=== PATIENT | female | born 1950 | race Caucasian/White ===

== ENCOUNTER 2017-02-24 20:58 | Inpatient (IN) | payer OTHER ==
[~2017-02-24] VITALS: Ht 162.6 cm; Wt 60.0 kg
[~2017-02-24 20:58] MED LIST: SIMV40TA2 PO; SYN125 PO
[2017-02-24] MEDS ORDERED: SODIUM CHLORIDE 0.9% 1000ML 1,000 ML IV STA (21:20)
[2017-02-24] MEDS ORDERED: ONDANSETRON INJ 2 MG/ML 2 ML VIAL IV STA (21:20)
[2017-02-24] MEDS ORDERED: MoRPHine SULFATE 10 MG/ML CARP/VIAL IV STA (21:20)
[2017-02-24 21:39] LABS: BASO % 0.3 %; BASO ABS # 0.03 K/uL (0-0.2); COMPLETE YES; EOS % 0.6 %; HEMATOCRIT 36.8 % (37-47); IG% 0.3 %; LYMPH % 34.6 %; LYMPH ABS # 4.03 K/uL (1.2-3.4); MEAN CORPUSCULAR HEMOGLOBIN 30.6 pg (25-34); MEAN CORPUSCULAR HGB CONC 34.8 g/dl (32-36); MEAN PLATELET VOLUME 10.9 fL (7.4-10.4); MONO % 5.8 %; NEUT % 58.4 %; PLATELET COUNT 211 K/uL (130-400); RED BLOOD COUNT 4.18 M/uL (4.2-5.4); WHITE BLOOD COUNT 11.65 K/uL (4.8-10.8)
[2017-02-24 21:42] LABS: MANUAL MICROSCOPIC REQUIRED? YES; URINE APPEARANCE SL CLOUDY (CLEAR); URINE BILIRUBIN NEG (NEG); URINE COLOR YELLOW; URINE NITRITE NEG (NEG); URINE PH 7.5 (4.5-7.5); URINE SPECIFIC GRAVITY <= 1.005 (1.000-1.030); UROBILINOGEN NEG (NEG)
--- NOTE | 2017-02-24 21:43 | EMERGENCY ROOM VISIT NOTE ---
History First contact with patient: 21:11 Chief Complaint: ABDOMINAL PAIN Stated Complaint: ABDOMINAL PAIN Nursing Triage Summary: c/o lower abd pain for 2 hrs with n/v/d pt presents to the room screaming and yelling calming techniques given. History of Present Illness The patient is a 66 year old female who presents to the Emergency Room with complaints of lower abdominal pain which began suddenly 2 hours ago. The patient states that she has a pressure and pain in her lower abdomen which started suddenly 2 hours ago. She has been vomiting and has had a few episodes of diarrhea. She denies any history of similar symptoms. She rates her discomfort a 10/10. She has had a previous cholecystectomy but denies any other abdominal surgeries. She takes medication for thyroid but denies other medical problems. She denies urinary symptoms or fevers/chills. Review of Systems A complete 10 point review of systems was reviewed with the patient with pertinent positives and negatives as per history of present illness. All else were negative. Social History Smoking Status: Never Smoker Current/Historical Medications Scheduled Levothyroxine Sodium (Synthroid), 125 MCG PO QAM Simvastatin (Zocor), 40 MG PO QPM Allergies Coded Allergies: No Known Allergies (Unverified , 02/24/17) Physical Exam Vital Signs Date Time Temp Pulse Resp B/P (MAP) Pulse Ox O2 Delivery O2 Flow Rate FiO2 02/24/17 22:37 67 16 159/74 94 Room Air 02/24/17 22:12 63 18 151/70 100 Room Air 02/24/17 21:19 36.8 02/24/17 21:04 36.9 111 18 161/76 100 Room Air Physical Exam VITALS: Vitals are noted on the nurse's note and reviewed by myself. Vital signs stable. GENERAL: This is a 66-year-old female, screaming, appears to be in pain, well- developed well-nourished. HEART: Regular rate and rhythm without murmurs gallops or rubs. LUNGS: Clear to auscultation bilaterally without wheezes, rales or rhonchi. ABDOMEN: Positive bowel sounds x 4. Soft, nondistended. There is moderate tenderness to palpation of the suprapubic region. There is no guarding or rebound tenderness. No rigidity. NEURO: Patient was alert and oriented to person place and time. Medical Decision & Procedures ER Provider Diagnostic Interpretation: CT OF THE ABDOMEN AND PELVIS WITHOUT CONTRAST CLINICAL HISTORY: Sudden onset left flank pain. COMPARISON STUDY: No previous studies for comparison. TECHNIQUE: Axial images of the abdomen and pelvis were obtained without IV contrast. Images were reviewed in the axial, sagittal, and coronal planes. FINDINGS: Unenhanced images of the liver, spleen, adrenal glands and pancreas are normal. There is no biliary ductal dilatation status post cholecystectomy. There is mild left hydroureteronephrosis due to a 5 mm x 3 mm distal left ureteral calculus which is located just proximal to the ureterovesical junction. There is mild to moderate left perinephric and periureteral infiltration. There is no evidence for a bowel obstruction. The appendix is normal. Note is made of an 8.6 x 8.3 x 7.4 cm mixed attenuation fat and calcium containing mass within the pelvis which is located along the right posterior aspect of the uterus. This mass likely arises from the right ovary and displaces the uterus. A normal-appearing left ovary is identified on this examination. No normal-appearing right ovary is identified on this exam. Mild compression deformity of the superior endplate of L4 is likely old. There is a small hiatal hernia. IMPRESSION: 1. 5 mm x 3 mm distal left ureteral calculus which results in mild left hydroureteronephrosis with perinephric infiltration. 2. 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 Nonemergent gynecologic consultation is recommended. Laboratory Results 02/24/17 21:20 Red Blood Count 4.18, Mean Corpuscular Volume 88.0, Mean Corpuscular Hemoglobin 30.6, Mean Corpuscular Hemoglobin Concent 34.8, Mean Platelet Volume 10.9, Neutrophils (%) (Auto) 58.4, Lymphocytes (%) (Auto) 34.6, Monocytes (%) (Auto) 5.8, Eosinophils (%) (Auto) 0.6, Basophils (%) (Auto) 0.3, Neutrophils # (Auto) 6.81, Lymphocytes # (Auto) 4.03, Monocytes # (Auto) 0.67, Eosinophils # (Auto) 0.07, Basophils # (Auto) 0.03 02/24/17 21:20 Test 02/24/17 21:10 02/24/17 21:20 02/24/17 21:40 Urine Color YELLOW Urine Appearance SL CLOUDY (CLEAR) Urine pH 7.5 (4.5-7.5) Urine Specific [place] <= 1.005 (1.000-1.030) Urine Protein NEG (NEG) Urine Glucose (UA) NEG (NEG) Urine Ketones NEG (NEG) Urine Occult Blood TRACE (NEG) Urine Nitrite NEG (NEG) Urine Bilirubin NEG (NEG) Urine Urobilinogen NEG (NEG) Urine Leukocyte Esterase TRACE (NEG) Urine RBC 0-4 /hpf (0-4) Urine WBC 5-10 /hpf (0-5) Urine Epithelial Cells >30 /lpf (0-5) Urine Bacteria 1+ (NEG) Urine Granular Casts 0-3 /lpf (0) White Blood Count 11.65 K/uL (4.8-10.8) Red Blood Count 4.18 M/uL (4.2-5.4) Hemoglobin 12.8 g/dL (12.0-16.0) Hematocrit 36.8 % (37-47) Mean Corpuscular Volume 88.0 fL (80-100) Mean Corpuscular Hemoglobin 30.6 pg (25-34) Mean Corpuscular Hemoglobin Concent 34.8 g/dl (32-36) Platelet Count 211 K/uL (130-400) Mean Platelet Volume 10.9 fL (7.4-10.4) Neutrophils (%) (Auto) 58.4 % Lymphocytes (%) (Auto) 34.6 % Monocytes (%) (Auto) 5.8 % Eosinophils (%) (Auto) 0.6 % Basophils (%) (Auto) 0.3 % Neutrophils # (Auto) 6.81 K/uL (1.4-6.5) Lymphocytes # (Auto) 4.03 K/uL (1.2-3.4) Monocytes # (Auto) 0.67 K/uL (0.11-0.59) Eosinophils # (Auto) 0.07 K/uL (0-0.5) Basophils # (Auto) 0.03 K/uL (0-0.2) RDW Standard Deviation 40.2 fL (36.4-46.3) RDW Coefficient of Variation 12.6 % (11.5-14.5) Immature Granulocyte % (Auto) 0.3 % Immature Granulocyte # (Auto) 0.04 K/uL (0.00-0.02) Anion Gap 14.0 mmol/L (3-11) Est Creatinine Clear Calc Drug Dose 44.1 ml/min Estimated GFR () 61.0 Estimated GFR (Non- 52.6 BUN/Creatinine Ratio 22.0 (10-20) Calcium Level 9.0 mg/dl (8.5-10.1) Total Bilirubin 0.6 mg/dl (0.2-1) Direct Bilirubin < 0.1 mg/dl (0-0.2) Aspartate Amino Transf (AST/SGOT) 37 U/L (15-37) Alanine Aminotransferase (ALT/SGPT) 39 U/L (12-78) Alkaline Phosphatase 70 U/L (45-117) Total Protein 7.4 gm/dl (6.4-8.2) Albumin 4.1 gm/dl (3.4-5.0) Lipase 172 U/L (73-393) Lactic Acid Level 2.1 mmol/L (0.4-2.0) Medications Administered Medications (Trade) Dose Ordered Sig/Sascha Route Start Time Stop Time Status Last Admin Dose Admin Sodium Chloride 1,000 ml @ 999 mls/hr Q1H1M STAT IV 02/24/17 21:20 02/24/17 22:20 DC 02/24/17 21:27 999 MLS/HR Morphine Sulfate (MoRPHine SULFATE INJ) 6 mg NOW STAT IV 02/24/17 21:20 02/24/17 21:22 DC 02/24/17 21:28 6 MG Ondansetron HCl (Zofran Inj) 4 mg NOW STAT IV 02/24/17 21:20 02/24/17 21:22 DC 02/24/17 21:28 4 MG Promethazine HCl 12.5 mg/Sodium Chloride 50.5 ml @ 204 mls/hr NOW STAT IV 02/24/17 21:54 02/24/17 22:08 DC 02/24/17 22:11 204 MLS/HR Hydromorphone HCl (Dilaudid Inj) 0.5 mg NOW STAT IV 02/24/17 22:30 02/24/17 22:32 DC 02/24/17 22:35 0.5 MG ED Course The patient was evaluated as above. Labs were drawn and IV access was obtained. Patient was medicated with 6 mg morphine IV, 1 L normal saline solution and 4 mg Zofran IV. The patient was reevaluated and felt slightly better, but has continued nausea and vomiting. She was given 12.5 mg Phenergan IV. Patient was reevaluated and had continued pain. She was given 0.[address] of the abdomen and pelvis was performed and read by radiology as above. Patient was reevaluated and findings were discussed. She will be admitted for further evaluation and treatment. Case was discussed with the [facility] hospitalist, Dr. Austin. They agreed to evaluate the patient for admission. Medical Decision Differential diagnosis includes kidney stone, diverticulitis, urinary tract infection, ischemic colitis, appendicitis, gastroenteritis, ovarian cyst, ovarian torsion, among others. The patient is a 66-year-old female who presents today complaining of an acute onset of abdominal pain and vomiting. Labs revealed mild leukocytosis consistent with infection or vomiting. Urinalysis was suggestive of contamination vs infection and will be sent for culture. CT showed a 5x3mm stone in the left distal ureter. Patient had continued pain and nausea and will be admitted for further evaluation. She did have an incidental finding of an ovarian mass, likely a teratoma. Of note, after discussion with Dr. Austin for admission, the patient's lactic acid did return and was slightly elevated at 2.1. This was initially ordered to rule out ischemic colitis. I am unsure of the cause of the patient's lactic acidosis. She will be admitted to the [facility] service for further evaluation. The patient was independently evaluated by Dr. Higuera, ED attending physician, who agreed with my assessment and treatment plan. Medication reconciliation: I attest that I have personally reviewed the patient 's current medication list. Blood pressure screening: Patient was found to have an elevated blood pressure and was referred to their primary care provider for recheck and further treatment. Impression Primary Impression: Left ureteral calculus Departure Information Referrals Sergio Dillon III, M.D. (PCP) Patient Instructions My [facility]
[2017-02-24 21:45] LABS: REVIEW REQ? NO
[2017-02-24 21:47] LABS: SULFASALICYLIC ACID NEG (NEG)
[2017-02-24 21:49] LABS: URINE BACTERIA 1+ (NEG); URINE RBC 0-4 /hpf (0-4)
[2017-02-24 21:50] LABS: URINE GRANULAR CAST 0-3 /lpf (0); ZZUR CULT IF INDIC CLEAN CATCH YES
[2017-02-24] MEDS ORDERED: PROMETHAZINE HCL INJ 12.5 MG in SODIUM CHLORIDE 0.9% 50ML 50 ML IV STA (21:54)
[2017-02-24 21:59] LABS: ALT/SGPT 39 U/L (12-78); BLOOD UREA NITROGEN 24 mg/dl (7-18); CARBON DIOXIDE 24 mmol/L (21-32); CHLORIDE 107 mmol/L (98-107); GLUCOSE 120 mg/dl (70-99); POTASSIUM 3.1 mmol/L (3.5-5.1); SODIUM 145 mmol/L (136-145)
[2017-02-24 22:02] LABS: ALKALINE PHOSPHATASE 70 U/L (45-117); AST/SGOT 37 U/L (15-37)
[2017-02-24] MEDS ORDERED: SYN125 PO (22:13)
[2017-02-24] MEDS ORDERED: HYDROmorphone INJ 0.5 MG/0.5 ML SYR IV STA (22:30)
--- NOTE | 2017-02-24 22:47 | DIAGNOSTIC IMAGING REPORT ---
CT OF THE ABDOMEN AND PELVIS WITHOUT CONTRAST CLINICAL HISTORY: Sudden onset left flank pain. COMPARISON STUDY: No previous studies for comparison. TECHNIQUE: Axial images of the abdomen and pelvis were obtained without IV contrast. Images were reviewed in the axial, sagittal, and coronal planes. FINDINGS: Unenhanced images of the liver, spleen, adrenal glands and pancreas are normal. There is no biliary ductal dilatation status post cholecystectomy. There is mild left hydroureteronephrosis due to a 5 mm x 3 mm distal left ureteral calculus which is located just proximal to the ureterovesical junction. There is mild to moderate left perinephric and periureteral infiltration. There is no evidence for a bowel obstruction. The appendix is normal. Note is made of an 8.6 x 8.3 x 7.4 cm mixed attenuation fat and calcium containing mass within the pelvis which is located along the right posterior aspect of the uterus. This mass likely arises from the right ovary and displaces the uterus. A normal-appearing left ovary is identified on this examination. No normal-appearing right ovary is identified on this exam. Mild compression deformity of the superior endplate of L4 is likely old. There is a small hiatal hernia. IMPRESSION: 1. 5 mm x 3 mm distal left ureteral calculus which results in mild left hydroureteronephrosis with perinephric infiltration. 2. 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 Nonemergent gynecologic consultation is recommended. Electronically signed by: Nathan Hawkins M.D. 02/24/2017 10:46 PM Dictated Date/Time: 02/24/2017 10:34 PM
--- NOTE | 2017-02-24 22:56 | EMERGENCY ROOM VISIT NOTE ---
ED Visit Note First contact with patient: 21:11 Staff note: I have reviewed the Patients chart and have discussed this case with my PA. I generally agree with the ED note and findings.
[2017-02-24] MEDS ORDERED: POLYETHYLENE (MIRALAX) 17 GM PACK PO PRN (23:45)
[2017-02-24] MEDS ORDERED: MAGNESIUM HYDROXIDE SUSP 30 ML UDC PO PRN (23:45)
[2017-02-24] MEDS ORDERED: ACETAMINOPHEN 325 MG TAB PO PRN (23:45)
[2017-02-24] MEDS ORDERED: ONDANSETRON INJ 2 MG/ML 2 ML VIAL IV PRN (23:45)
[2017-02-24] MEDS ORDERED: ALUMINUM/MAGNESIUM/SIMETH (MAALOX MAX) 30 ML UDC PO PRN (23:45)
[2017-02-24] MEDS ORDERED: KETOROLAC TROMETHAMINE 30 MG/ML VIAL IV PRN (23:45)
[2017-02-25] VITALS (9 sets, daily range): BP systolic 104–167; BP diastolic 58–93; PULSE 68–80; TEMP 36.5–36.9; O2SAT 97–100; Ht 162.6 cm; Wt 60.0 kg
[2017-02-25] MEDS: MoRPHine SULFATE 2 MG/ML CARP IV PRN ×3 (00:44→23:59)
[2017-02-25] MEDS: SODIUM CHLORIDE 0.9% 1000ML 1,000 ML IV SCH ×4 (01:28→23:59)
[2017-02-25] MEDS: CEFTRIAXONE SOD INJ 1 GM in DEXTROSE 5% ADD-VANTAGE 50ML 50 ML IV SCH (02:52)
--- NOTE | 2017-02-25 02:55 | History and Physical ---
History & Physical Date & Time of Service: Feb 25, 2017 at 02:40 Chief Complaint: Left Ureteral Calculus Primary Care Physician: Sergio Dillon III, M.D. History of Present Illness Source: patient, family, clinic records, hospital records This is a 66 year old female with a PMH of hypothyroidism, HLD presents with worsening suprapubic tenderness, nausea/vomiting, symptomatic fevers/chills. Symptoms began acutely and pain was severe so she presented to the ER. Upon presentation, imagining revealed a left sided kidney stone. She received pain medications and antiemetics and she felt somewhat better. During my exam, she was tired, but pain subsided and she was feeling more comfortable. Has not had a kidney stone in the past. Denies dysuria, urinary frequency, or hematuria. Social History Smoking Status: Never Smoker Multi-Drug Resistant Organisms History of MDRO: No Allergies Coded Allergies: No Known Allergies (Unverified , 02/24/17) Home Medications Scheduled Levothyroxine Sodium (Synthroid), 125 MCG PO QAM Simvastatin (Zocor), 40 MG PO QPM Review of Systems Constitutional: + fever, + chills, + sweats, + weakness, No weight loss, No fatigue Respiratory: No cough, No sputum, No wheezing, No shortness of breath, No dyspnea on exertion, No dyspnea at rest, No hemoptysis Cardiovascular: No chest pain, No edema, No palpitations Abdomen: + pain, + nausea, + vomiting, + diarrhea, No constipation, No GI bleeding Musculoskeletal: No joint pain, No muscle pain Genitourinary - Female: No dysuria, No urinary frequency, No urinary urgency, No hematuria Neurologic: + weakness, No numbness/tingling, No vertigo, No balance problems Psychiatric: No depression symptoms, No anxiety, No insomnia Endocrine: No fatigue Hematologic / Lymphatic: No abnormal bleeding/bruising Integumentary: No rash Allergic / Immunologic: No environmental allergies, No seasonal allergies Physical Exam Vital Signs Date Time Temp Pulse Resp B/P (MAP) Pulse Ox O2 Delivery O2 Flow Rate FiO2 02/25/17 01:09 36.7 71 14 167/93 100 Room Air 02/25/17 00:20 36.7 71 14 167/93 (117) 100 Room Air 02/24/17 23:46 64 18 156/65 100 Room Air 02/24/17 22:37 67 16 159/74 94 Room Air 02/24/17 22:12 63 18 151/70 100 Room Air 02/24/17 21:19 36.8 02/24/17 21:04 36.9 111 18 161/76 100 Room Air General Appearance: no apparent distress, + pertinent finding (+tired/weak) Head: normocephalic, atraumatic Eyes: normal inspection ENT: hearing grossly normal Respiratory/Chest: lungs clear, normal breath sounds, no respiratory distress, no accessory muscle use Cardiovascular: regular rate, rhythm, no edema, no murmur Abdomen/GI: normal bowel sounds, soft, + tenderness (diffusely, worse suprapubicly) Back: + left CVA tenderness Extremities/Musculoskelatal: no calf tenderness, normal capillary refill, no pedal edema Neurologic/Psych: no motor/sensory deficits, alert, normal mood/affect Skin: normal color Lymphatic: no adenopathy Diagnostics Laboratory Results Results Past 24 Hours Test 02/24/17 21:10 02/24/17 21:20 02/24/17 21:40 Range/Units Urine Color YELLOW Urine Appearance SL CLOUDY CLEAR Urine pH 7.5 4.5-7.5 Urine Specific [place] <= 1.005 1.000-1.030 Urine Protein NEG NEG Urine Glucose (UA) NEG NEG Urine Ketones NEG NEG Urine Occult Blood TRACE NEG Urine Nitrite NEG NEG Urine Bilirubin NEG NEG Urine Urobilinogen NEG NEG Urine Leukocyte Esterase TRACE NEG Urine RBC 0-4 0-4 /hpf Urine WBC 5-10 0-5 /hpf Urine Epithelial Cells >30 0-5 /lpf Urine Bacteria 1+ NEG Urine Granular Casts 0-3 0 /lpf White Blood Count 11.65 4.8-10.8 K/uL Red Blood Count 4.18 4.2-5.4 M/uL Hemoglobin 12.8 12.0-16.0 g/dL Hematocrit 36.8 37-47 % Mean Corpuscular Volume 88.0 80-100 fL Mean Corpuscular Hemoglobin 30.6 25-34 pg Mean Corpuscular Hemoglobin Concent 34.8 32-36 g/dl Platelet Count 211 130-400 K/uL Mean Platelet Volume 10.9 7.4-10.4 fL Neutrophils (%) (Auto) 58.4 % Lymphocytes (%) (Auto) 34.6 % Monocytes (%) (Auto) 5.8 % Eosinophils (%) (Auto) 0.6 % Basophils (%) (Auto) 0.3 % Neutrophils # (Auto) 6.81 1.4-6.5 K/uL Lymphocytes # (Auto) 4.03 1.2-3.4 K/uL Monocytes # (Auto) 0.67 0.11-0.59 K/uL Eosinophils # (Auto) 0.07 0-0.5 K/uL Basophils # (Auto) 0.03 0-0.2 K/uL RDW Standard Deviation 40.2 36.4-46.3 fL RDW Coefficient of Variation 12.6 11.5-14.5 % Immature Granulocyte % (Auto) 0.3 % Immature Granulocyte # (Auto) 0.04 0.00-0.02 K/uL Sodium Level 145 136-145 mmol/L Potassium Level 3.1 3.5-5.1 mmol/L Chloride Level 107 98-107 mmol/L Carbon Dioxide Level 24 21-32 mmol/L Anion Gap 14.0 3-11 mmol/L Blood Urea Nitrogen 24 7-18 mg/dl Creatinine 1.10 0.60-1.20 mg/dl Est Creatinine Clear Calc Drug Dose 44.1 ml/min Estimated GFR () 61.0 Estimated GFR (Non- 52.6 BUN/Creatinine Ratio 22.0 10-20 Random Glucose 120 70-99 mg/dl Calcium Level 9.0 8.5-10.1 mg/dl Total Bilirubin 0.6 0.2-1 mg/dl Direct Bilirubin < 0.1 0-0.2 mg/dl Aspartate Amino Transf (AST/SGOT) 37 15-37 U/L Alanine Aminotransferase (ALT/SGPT) 39 12-78 U/L Alkaline Phosphatase 70 45-117 U/L Total Protein 7.4 6.4-8.2 gm/dl Albumin 4.1 3.4-5.0 gm/dl Lipase 172 73-393 U/L Lactic Acid Level 2.1 0.4-2.0 mmol/L Microbiology Results 02/24/17 Urine Culture, Received Pending Diagnostic Radiology CT OF THE ABDOMEN AND PELVIS WITHOUT CONTRAST CLINICAL HISTORY: Sudden onset left flank pain. COMPARISON STUDY: No previous studies for comparison. TECHNIQUE: Axial images of the abdomen and pelvis were obtained without IV contrast. Images were reviewed in the axial, sagittal, and coronal planes. FINDINGS: Unenhanced images of the liver, spleen, adrenal glands and pancreas are normal. There is no biliary ductal dilatation status post cholecystectomy. There is mild left hydroureteronephrosis due to a 5 mm x 3 mm distal left ureteral calculus which is located just proximal to the ureterovesical junction. There is mild to moderate left perinephric and periureteral infiltration. There is no evidence for a bowel obstruction. The appendix is normal. Note is made of an 8.6 x 8.3 x 7.4 cm mixed attenuation fat and calcium containing mass within the pelvis which is located along the right posterior aspect of the uterus. This mass likely arises from the right ovary and displaces the uterus. A normal-appearing left ovary is identified on this examination. No normal-appearing right ovary is identified on this exam. Mild compression deformity of the superior endplate of L4 is likely old. There is a small hiatal hernia. IMPRESSION: 1. 5 mm x 3 mm distal left ureteral calculus which results in mild left hydroureteronephrosis with perinephric infiltration. 2. 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 Nonemergent gynecologic consultation is recommended. Impression Assessment and Plan This is a 66 year old female with a PMH of hypothyroidism, HLD presents with worsening suprapubic tenderness, nausea/vomiting, symptomatic fevers/chills. Left Ureteral Calculus Abdominal CT performed and shows a 5mm x 3mm stone there is some hydroureteronephrosis continue analgesics, antiemetics IVFs strain urine WBC slightly elevated, symptomatic fevers, lactic acidosis UA seems slightly infected, started on Rocephin for now, culture pending recheck CBC and lactic acid in AM urology consultation placed for further input Right Ovarian Mature Teratoma suprapubic tenderness Pelvic CT suggests a mature dermoid cyst on R ovary Rehabilitation Program Coordinator consultation placed Hypothyroid continue Synthroid HLD continue statin DVT ppx SCDs FULL CODE Advanced Directives Existing Living Will: No Existing Power of Commercial [place]: No VTE Prophylaxis VTE Risk Assessment Done? Y/N: Yes Risk Level: Low
[2017-02-25] MEDS: LEVOTHYROXINE 125 MCG TAB PO SCH (05:34)
[2017-02-25 06:49] LABS: HEMATOCRIT 34.1 % (37-47); MEAN CELL VOLUME 87.2 fL (80-100); MEAN CORPUSCULAR HEMOGLOBIN 29.4 pg (25-34); MEAN CORPUSCULAR HGB CONC 33.7 g/dl (32-36); MEAN PLATELET VOLUME 10.2 fL (7.4-10.4); PLATELET COUNT 183 K/uL (130-400); RED BLOOD COUNT 3.91 M/uL (4.2-5.4)
[2017-02-25 07:26] LABS: CALCIUM 7.9 mg/dl (8.5-10.1); CREATININE 1.2 mg/dl (0.60-1.20); MAGNESIUM 2.4 mg/dl (1.8-2.4); POTASSIUM 4.1 mmol/L (3.5-5.1)
[2017-02-25] MEDS ORDERED: TAMSULOSIN HCL 0.4 MG CAP PO ONE (10:00)
--- NOTE | 2017-02-25 10:24 | Progress Note ---
Medicine Progress Note Date & Time of Visit: Feb 25, 2017 at 10:24 . Subjective Admitted last night with left ureteral colic. No fever, but has some chills last night. Lower abdominal pain improved. No dysuria or gross hematuria. Severe nausea last night, improved. No chest pain. No cough or shortness of breath. . Objective Last 8 Hrs Date Time Temp Pulse Resp B/P (MAP) Pulse Ox O2 Delivery O2 Flow Rate FiO2 02/25/17 07:59 Room Air 02/25/17 07:55 99 Room Air 02/25/17 07:45 36.5 80 16 108/68 (81) 99 Room Air 02/25/17 02:30 116/72 (87) Physical Exam: General- no distress Lungs- clear to auscultation Heart- regular Abdomen- normal bowel sounds, soft, nontender Back- no CVA tenderness Extremities- no pretibial edema or calf tenderness Neuro- alert, oriented . Laboratory Results: Last 24 Hours Test 02/24/17 21:10 02/24/17 21:20 02/24/17 21:40 02/25/17 06:28 Urine Color YELLOW Urine Appearance SL CLOUDY Urine pH 7.5 Urine Specific Parker <= 1.005 Urine Protein NEG Urine Glucose (UA) NEG Urine Ketones NEG Urine Occult Blood TRACE Urine Nitrite NEG Urine Bilirubin NEG Urine Urobilinogen NEG Urine Leukocyte Esterase TRACE Urine RBC 0-4 /hpf Urine WBC 5-10 /hpf Urine Epithelial Cells >30 /lpf Urine Bacteria 1+ Urine Granular Casts 0-3 /lpf White Blood Count 11.65 K/uL Red Blood Count 4.18 M/uL Hemoglobin 12.8 g/dL Hematocrit 36.8 % Mean Corpuscular Volume 88.0 fL Mean Corpuscular Hemoglobin 30.6 pg Mean Corpuscular Hemoglobin Concent 34.8 g/dl Platelet Count 211 K/uL Mean Platelet Volume 10.9 fL Neutrophils (%) (Auto) 58.4 % Lymphocytes (%) (Auto) 34.6 % Monocytes (%) (Auto) 5.8 % Eosinophils (%) (Auto) 0.6 % Basophils (%) (Auto) 0.3 % Neutrophils # (Auto) 6.81 K/uL Lymphocytes # (Auto) 4.03 K/uL Monocytes # (Auto) 0.67 K/uL Eosinophils # (Auto) 0.07 K/uL Basophils # (Auto) 0.03 K/uL RDW Standard Deviation 40.2 fL RDW Coefficient of Variation 12.6 % Immature Granulocyte % (Auto) 0.3 % Immature Granulocyte # (Auto) 0.04 K/uL Sodium Level 145 mmol/L Potassium Level 3.1 mmol/L Chloride Level 107 mmol/L Carbon Dioxide Level 24 mmol/L Anion Gap 14.0 mmol/L Blood Urea Nitrogen 24 mg/dl Creatinine 1.10 mg/dl Est Creatinine Clear Calc Drug Dose 44.1 ml/min Estimated GFR () 61.0 Estimated GFR (Non- 52.6 BUN/Creatinine Ratio 22.0 Random Glucose 120 mg/dl Calcium Level 9.0 mg/dl Total Bilirubin 0.6 mg/dl Direct Bilirubin < 0.1 mg/dl Aspartate Amino Transf (AST/SGOT) 37 U/L Alanine Aminotransferase (ALT/SGPT) 39 U/L Alkaline Phosphatase 70 U/L Total Protein 7.4 gm/dl Albumin 4.1 gm/dl Lipase 172 U/L Hepatitis C Antibody Screen NEG Lactic Acid Level 2.1 mmol/L 0.7 mmol/L Test 02/25/17 06:38 White Blood Count 8.60 K/uL Red Blood Count 3.91 M/uL Hemoglobin 11.5 g/dL Hematocrit 34.1 % Mean Corpuscular Volume 87.2 fL Mean Corpuscular Hemoglobin 29.4 pg Mean Corpuscular Hemoglobin Concent 33.7 g/dl RDW Standard Deviation 40.7 fL RDW Coefficient of Variation 12.6 % Platelet Count 183 K/uL Mean Platelet Volume 10.2 fL Sodium Level 143 mmol/L Potassium Level 4.1 mmol/L Chloride Level 111 mmol/L Carbon Dioxide Level 23 mmol/L Anion Gap 9.0 mmol/L Blood Urea Nitrogen 22 mg/dl Creatinine 1.20 mg/dl Est Creatinine Clear Calc Drug Dose 40.4 ml/min Estimated GFR () 54.9 Estimated GFR (Non- 47.4 BUN/Creatinine Ratio 18.0 Random Glucose 118 mg/dl Calcium Level 7.9 mg/dl Magnesium Level 2.4 mg/dl Date/Time Source Procedure Growth Status 02/24/17 21:10 Urine , Clean Catch Urine Culture Pending Received Assessment & Plan URETERAL COLIC CT demonstrated left distal ureteral calculus measuring 3 x 5 mm. Receiving IV fluids and ceftriaxone. Afebrile. WBC slightly elevated on admission, improved. Urology consulted. Tamsulosin ordered. Further management per Urology. OVARIAN MASS CT demonstrated right ovarian mass measuring 8.6 cm in greatest diameter. 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 FIELD SALES EXECUTIVE consulted. VTE PROPHYLAXIS SCD's. Ambulate. DISPOSITION Expected discharge to home. Family Medicine follow-up with Christina Garcia PA-C and Dr. Dillon. . Current Inpatient Medications: Current Inpatient Medications Medications (Trade) Dose Ordered Sig/Sascha Route Start Time Stop Time Status Last Admin Dose Admin Acetaminophen (Tylenol Tab) 650 mg Q4H PRN PO 02/24/17 23:45 03/26/17 23:44 Al Hydrox/Mg Hydrox/Simethicone (Maalox Max Susp) 15 ml Q4H PRN PO 02/24/17 23:45 03/26/17 23:44 Magnesium Hydroxide (Milk Of Magnesia Susp) 30 ml Q6H PRN PO 02/24/17 23:45 03/26/17 23:44 Polyethylene (Miralax Powder Packet) 17 gm DAILY PRN PO 02/24/17 23:45 03/26/17 23:44 Ondansetron HCl (Zofran Inj) 4 mg Q6H PRN IV 02/24/17 23:45 03/26/17 23:44 Sodium Chloride 1,000 ml @ 125 mls/hr Q8H IV 02/25/17 01:30 03/27/17 01:29 02/25/17 08:57 125 MLS/HR Morphine Sulfate (MoRPHine SULFATE INJ) 2 mg Q4 PRN IV 02/24/17 23:45 03/10/17 23:44 02/25/17 00:44 2 MG Ketorolac Tromethamine (Toradol Inj) 30 mg Q6H PRN IV 02/24/17 23:45 03/01/17 23:44 Levothyroxine Sodium (Synthroid Tab) 125 mcg DAILYBB PO 02/25/17 06:00 03/27/17 06:59 02/25/17 05:34 125 MCG Simvastatin (Zocor Tab) 40 mg QPM PO 02/25/17 21:00 03/27/17 20:59 Ceftriaxone Sodium 1 gm/ Dextrose 50 ml @ 100 mls/hr Q24H IV 6/13/17 03:00 03/07/17 02:59 02/25/17 02:52 100 MLS/HR
--- NOTE | 2017-02-25 17:24 | Urology Consultation ---
History General Date of Service: Feb 25, 2017. Chief Complaint: left ureteral stone Primary Care Physician: Sergio Dillon III, M.D. Pt seen a urologist before?: No History of Present Illness I am asked by Dr Austin to evaluate and treat patient for left ureteral stone. She has had pain for 2 days. She had nausea and emesis and a lot of bladder pressure. She had a pain free episode for most of today but is not at 5pm getting bladder pressure and chills and nausea again, I had the nurse recheck her temp and it is 36C she has never had stone before. Laboratory Labs were reviewed and are within normal limits unless listed below. Labs are available in the chart and at [facility] Problem List Medical Problems: (1) Left ureteral calculus Status: Acute Past History high cholesterol, hypothyroidism Past Surgical History: cholecystectomy (age 26 ) Family History no stones sibs and parents healthy mom age 85 Social History Hx Tobacco Use In Past Year?: No Smoking: non-smoker Alcohol: never Drug use: none Marital status: Housing status: lives with family Occupation status: employed History of MDRO No Allergies Coded Allergies: No Known Allergies (Unverified , 02/24/17) Medications Home Medications: Home Meds and Scripts Medications Dose Route/Sig Max Daily Dose Days Date Category Synthroid (Levothyroxine Sodium) 125 Mcg Tab 125 Mcg PO QAM 02/24/17 Reported Zocor (Simvastatin) 40 Mg Tab 40 Mg PO QPM 02/27/11 Reported Inpatient Medications: Current Inpatient Medications Medications (Trade) Dose Ordered Sig/Sascha Route Start Time Stop Time Status Last Admin Dose Admin Acetaminophen (Tylenol Tab) 650 mg Q4H PRN PO 02/24/17 23:45 03/26/17 23:44 Al Hydrox/Mg Hydrox/Simethicone (Maalox Max Susp) 15 ml Q4H PRN PO 02/24/17 23:45 03/26/17 23:44 Magnesium Hydroxide (Milk Of Magnesia Susp) 30 ml Q6H PRN PO 02/24/17 23:45 03/26/17 23:44 Polyethylene (Miralax Powder Packet) 17 gm DAILY PRN PO 02/24/17 23:45 03/26/17 23:44 Ondansetron HCl (Zofran Inj) 4 mg Q6H PRN IV 02/24/17 23:45 03/26/17 23:44 Sodium Chloride 1,000 ml @ 125 mls/hr Q8H IV 02/25/17 01:30 03/27/17 01:29 02/25/17 16:38 125 MLS/HR Morphine Sulfate (MoRPHine SULFATE INJ) 2 mg Q4 PRN IV 02/24/17 23:45 03/10/17 23:44 02/25/17 00:44 2 MG Ketorolac Tromethamine (Toradol Inj) 30 mg Q6H PRN IV 02/24/17 23:45 03/01/17 23:44 Levothyroxine Sodium (Synthroid Tab) 125 mcg DAILYBB PO 02/25/17 06:00 03/27/17 06:59 02/25/17 05:34 125 MCG Simvastatin (Zocor Tab) 40 mg QPM PO 02/25/17 21:00 03/27/17 20:59 Ceftriaxone Sodium 1 gm/ Dextrose 50 ml @ 100 mls/hr Q24H IV 02/25/17 03:00 03/07/17 02:59 02/25/17 02:52 100 MLS/HR Review of Systems Review of Systems Constitutional: + chills, No fever Endocrine: + excessive thirst, + too hot, + too cold, + tired/sluggish Gastrointestinal: + abdominal pain, + nausea, + vomiting, + diarrhea, No constipation Cardiovascular: No chest pain, No irregular heartbeat, No palpitations, No swelling ankles/feet Respiratory: No shortness of breath, No chronic cough Female : + frequent urination, + painful urination, + infections, + kidney stones Physical Exam Vital Signs: Vital Signs Past 12 Hours Date Time Temp Pulse Resp B/P (MAP) Pulse Ox O2 Delivery O2 Flow Rate FiO2 02/25/17 14:50 36.7 74 16 104/58 (73) 97 Room Air 02/25/17 11:49 36.6 68 15 108/62 (77) 99 Room Air 02/25/17 07:59 Room Air 02/25/17 07:55 99 Room Air 02/25/17 07:45 36.5 80 16 108/68 (81) 99 Room Air Physical Exam: General Appearance: WD/WN, no apparent distress, + thin Eyes: bilateral eyes normal inspection ENT: hearing grossly normal Neck: supple, no adenopathy, trachea midline Respiratory/Chest: normal breath sounds, no respiratory distress, no accessory muscle use Cardiovascular: regular rate, rhythm Gastrointestinal: Abdomen: normal abdomen Bladder: normal bladder Renal: pertinent finding (left cva tenderness) Hernia: absent hernia Liver: normal liver Extremities: non-tender, normal inspection, no pedal edema Neurologic/Psychiatric: alert, normal mood/affect, oriented x 3 Skin: normal color, warm/dry, no rash Lymphatic: no adenopathy Assessment & Plan Assessment & Plan Imaging: CT left uvj stone with hydro I think it is likely to pass no fever no white count u.a does not look bad if she fevers we will have to stent otherwise try to pass change to clear liquid diet again due to nausea
[2017-02-25] MEDS: SIMVASTATIN 40 MG TAB PO SCH (21:08)
[2017-02-26] VITALS (8 sets, daily range): BP systolic 108–139; BP diastolic 62–69; PULSE 62–78; TEMP 36.4–36.9; O2SAT 98–99
[2017-02-26] MEDS: CEFTRIAXONE SOD INJ 1 GM in DEXTROSE 5% ADD-VANTAGE 50ML 50 ML IV SCH (02:28)
[2017-02-26] MEDS: MoRPHine SULFATE 2 MG/ML CARP IV PRN ×2 (04:10→08:24)
[2017-02-26] MEDS: LEVOTHYROXINE 125 MCG TAB PO SCH (05:34)
[2017-02-26 06:29] LABS: HEMATOCRIT 31.9 % (37-47); MEAN CELL VOLUME 89.1 fL (80-100); MEAN CORPUSCULAR HEMOGLOBIN 28.2 pg (25-34); MEAN CORPUSCULAR HGB CONC 31.7 g/dl (32-36); PLATELET COUNT 138 K/uL (130-400); RED BLOOD COUNT 3.58 M/uL (4.2-5.4); WHITE BLOOD COUNT 8.73 K/uL (4.8-10.8)
[2017-02-26 07:07] LABS: BUN/CREATININE RATIO 10.9 (10-20); CREATININE 1.5 mg/dl (0.60-1.20); POTASSIUM 3.8 mmol/L (3.5-5.1)
[2017-02-26] MEDS ORDERED: OXYCODONE/ACETAMINOPHEN 5-325 TAB PO PRN ×2 (07:30)
[2017-02-26] MEDS: SODIUM CHLORIDE 0.9% 1000ML 1,000 ML IV SCH ×2 (08:23→16:43)
[2017-02-26] MEDS ORDERED: MoRPHine SULFATE 2 MG/ML CARP IV PRN (12:00)
[2017-02-26] MEDS ORDERED: TAMSULOSIN HCL 0.4 MG CAP PO ONE (14:30)
[2017-02-26] MEDS ORDERED: ONDANSETRON INJ 2 MG/ML 2 ML VIAL IV PRN (16:45)
[2017-02-26] MEDS ORDERED: HYDROmorphone INJ 1 MG/ML SYR IV PRN (16:45)
[2017-02-26] MEDS ORDERED: ATROPINE SULFATE 0.1 MG/ML 5ML SYR IV PRN (16:45)
[2017-02-26] MEDS ORDERED: EpHEDrine SULFATE INJ 50 MG/ML AMP IV PRN (16:45)
[2017-02-26] MEDS ORDERED: FENTANYL CITRATE INJ 50 MCG/1 ML 2 ML VIAL IV PRN (16:45)
[2017-02-26] MEDS ORDERED: MIDAZOLAM HCL 1 MG/ML 2ML VIAL ONE (16:49)
[2017-02-26] MEDS ORDERED: FENTANYL CITRATE INJ 50 MCG/1 ML 2 ML VIAL ONE (16:49)
--- NOTE | 2017-02-26 16:59 | History & Physical Bridge Note ---
H&P Re-Evaluation Bridge Note: I have examined the patient, reviewed the History & Physical and in the interval since the performance of the History & Physical I have noted the following changes of clinical significance: No changes noted still hasnt passed stone still having pain needing narcotics creatinine has risen plan left ureteroscopy laser litho basket stone extraction stent
[2017-02-26] MEDS ORDERED: LIDOCAINE HCL 2% 2 ML VIAL (20MG/ML) ONE (17:15)
[2017-02-26] MEDS ORDERED: DEXAMETHASONE SOD INJ 4 MG/ML VIAL ONE (17:15)
[2017-02-26] MEDS ORDERED: SUCCINYLCHOLINE CHLORIDE 20 MG/ML 10 ML VIAL IV ONE (17:15)
[2017-02-26] MEDS ORDERED: ONDANSETRON INJ 2 MG/ML 2 ML VIAL ONE (17:15)
[2017-02-26] MEDS ORDERED: BELLADONNA/OPIUM SUPP 60 MG SUPP PR ONE ×2 (17:28)
--- NOTE | 2017-02-26 17:39 | [facility] Operative Report ---
Operative Report Operative Date Feb 26, 2017. Pre-Operative Diagnosis left distal ureteral stone Post-Operative Diagnosis same Procedure(s) Performed left ureteroscopy laser lithotripsy basket stone extraction Surgeon Dr Dye Supervisor Pairing And Inspecting Surgeon(s) none Estimated Blood Loss 0ml Findings radio-lucent distal ureteral stone Fluids 400mL Specimens a. Left ureteral stone - stone analysis Drains none Anesthesia GET Complication(s) None Disposition Recovery Room / PACU Indications obstructing left distal ureteral stone has not progressed in 3 days and she is getting mild renal insufficiency. Description of Procedure Patient was given general GET anesthesia and placed in lithotomy position. Her genitals were prepped and draped in sterile fashion. Time out held with team. I placed a 21 fr rigid cystoscope to bladder. The urethra is unremarkable. She has moderate pelvic prolapse and the trigone is located at the inferior edge of pubic symphysis. The left uo is bulged up from stone the right Uo is normal. I placed a road runner wire up left ureter with moderate resistance at stone at uvj. A stiff wire was tried first and would not pass. I passed a 5 fr open ended cath over the road runner and switched back to a stiff wire. I placed a short semirigid scope along side the wire into the distal ureter. her stone is there pale castro and crystalline. I used a 200 micron holmium laser fiber to fragment the stone into tiny pieces. All but 1 irrigated out the UO into bladder. I used a 2.4 fr zero tip basket to grasp remaining stone and extracted it and sent it for specimen. The remainder of ureter is free of stone. Case was short and atraumatic all in the distal ureter so I did not leave a stent. I left bladder empty and concluded case. I placed a belladonna and opium suppository for post-op pain. She transferred to recovery under my escort, in stable condition. Plan: Home today or tomorrow Pyridium for dysuria x 3 days flomax daily oral pain meds as needed ASA 2 clean contaminated case 2 seconds fluoro ceftriaxone antibiotic this morning I attest to the content of the Intraoperative Record and any orders documented therein. Any exceptions are noted below.
--- NOTE | 2017-02-26 17:41 | DIAGNOSTIC IMAGING REPORT ---
KUB CLINICAL HISTORY: LEFT URETRA STONE, LASER lithotripsy TECHNIQUE: Lithotripsy COMPARISON STUDY: None FINDINGS: Single image is submitted demonstrating a left ureteral guidewire IMPRESSION: image intensifier usage of for laser lithotripsy. Electronically signed by: Ramin Saini M.D. 02/26/2017 5:40 PM Dictated Date/Time: 02/26/2017 5:39 PM
[2017-02-26] MEDS ORDERED: PHENAZOPYRIDINE HCL 200 MG TAB PO PRN (17:45)
--- NOTE | 2017-02-26 18:20 | Anesthesiology Progress Note ---
Anesthesia Post Op Note Date & Time Feb 26, 2017 at 18:20 Vital Signs Pain Intensity: 0 Vital Signs Past 12 Hours Date Time Temp Pulse Resp B/P (MAP) Pulse Ox O2 Delivery O2 Flow Rate FiO2 02/26/17 18:12 74 21 02/26/17 18:12 74 21 99 02/26/17 18:11 126/60 02/26/17 18:10 36.4 76 19 126/60 (75) 98 Nasal Cannula 2 02/26/17 18:07 79 16 02/26/17 18:07 79 16 99 02/26/17 18:06 76 16 120/70 100 02/26/17 18:06 77 16 02/26/17 18:01 82 21 118/76 99 02/26/17 18:01 84 21 02/26/17 17:56 83 20 128/63 100 02/26/17 17:56 83 20 02/26/17 17:51 83 22 109/88 100 02/26/17 17:51 83 22 02/26/17 17:49 119/66 02/26/17 17:46 36.7 85 18 119/66 97 Mask 10 02/26/17 17:00 36.7 68 16 140/69 (92) 100 Room Air 02/26/17 15:30 Room Air 02/26/17 15:29 36.9 62 16 132/69 (90) 98 Room Air 02/26/17 07:37 98 Room Air 02/26/17 07:36 36.9 78 16 108/68 (81) 98 Room Air 02/26/17 07:15 98 Room Air Notes Mental Status: alert / awake / arousable, participated in evaluation Pt Amnestic to Procedure: Yes Nausea / Vomiting: adequately controlled Pain: adequately controlled Airway Patency, RR, SpO2: stable & adequate BP & HR: stable & adequate Hydration State: stable & adequate Anesthetic Complications: no major complications apparent
[2017-02-26] MEDS ORDERED: PHEN-1043 PO (20:28)
[2017-02-26] MEDS ORDERED: PHENAZOPYRIDINE HCL 200 MG TAB PO ONE (20:30)
[2017-02-26] MEDS ORDERED: FLM4 PO (20:37)
--- NOTE | 2017-02-26 20:37 | Discharge Instructions ---
Discharge Instructions Date of Service Feb 26, 2017. Admission Reason for Admission: abdominal pain . Discharge Discharge Diagnosis / Problem: kidney stone, cyst in right ovary Discharge Goals Goal(s): Decrease discomfort, Improve disease control Activity Recommendations Activity Limitations: resume your previous activity . Instructions / Follow-Up Instructions / Follow-Up APPOINTMENTS: UROLOGY Dr. Dye. [facility] Office will contact you with appointment. FAMILY MEDICINE Christina Garcia PA-C. INSTRUCTIONS: You had a kidney stone blocking your left ureter. It was removed by Dr. Dye. Drink plenty of fluids. New medications: phenazopyridine (Pyridium) 200 mg 3 times a day as needed for bladder discomfort tamsulosin (Flomax) 0.4 mg at bedtime to relax muscles in ureter; only need to take it for 7 days (prescriptions sent to your pharmacy) CT scan of pelvic area showed a cyst in the right ovary. 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 Gynecology consultation recommended- will ask December to make referral for you. Seek medical attention if you have: * temperature above 101 * abdominal pain, nausea, vomiting * diarrhea, dark stools or bloody stools * burning when you urinate, blood in urine * any unanswered questions or concerns Call 911 if symptoms are severe. Call if you have any questions or problems. My cell # is [phone]. You can also reach a [facility] hospitalist on duty at [facility] 24 hours a day by calling [phone]. Please take good care of yourself. Sergio Damon . Current Hospital Diet Patient's current hospital diet: Regular Diet Discharge Diet Recommended Diet: AHA Diet (Heart Healthy) Procedures Procedures Performed: Cystoscopy, Left Ureteroscopy, Laser Lithotripsy, Basket Stone Extraction Pending Studies Studies pending at discharge: yes List of pending studies: kidney stone analysis Medical Emergencies . Who to Call and When: Medical Emergencies: If at any time you feel your situation is an emergency, please call 911 immediately. . Non-Emergent Contact Non-Emergency issues call your: Primary Care Provider, Hospital Doctor . . "Provider Documentation" section prepared by Sergio Damon. . VTE Core Measure Inpt VTE Proph given/why not?: SCD's
--- NOTE | 2017-02-26 20:44 | Progress Note ---
Medicine Progress Note Date & Time of Visit: Feb 26, 2017 at 10:30 . Subjective Recurrent nausea last night. Lower abdominal discomfort and left flank pain today. Dysuria or hematuria. Experienced some chills, but no fever. . Objective Last 8 Hrs Date Time Temp Pulse Resp B/P (MAP) Pulse Ox O2 Delivery O2 Flow Rate FiO2 02/26/17 07:37 98 Room Air 02/26/17 07:36 36.9 78 16 108/68 (81) 98 Room Air 02/26/17 07:15 98 Room Air Physical Exam: General- no distress Lungs- clear to auscultation Heart- regular Abdomen- normal bowel sounds, soft, nontender Back- left CVA tenderness Extremities- no pretibial edema or calf tenderness Neuro- alert, oriented . Laboratory Results: Last 24 Hours Test 02/26/17 06:17 White Blood Count 8.73 K/uL Red Blood Count 3.58 M/uL Hemoglobin 10.1 g/dL Hematocrit 31.9 % Mean Corpuscular Volume 89.1 fL Mean Corpuscular Hemoglobin 28.2 pg Mean Corpuscular Hemoglobin Concent 31.7 g/dl RDW Standard Deviation 41.4 fL RDW Coefficient of Variation 12.7 % Platelet Count 138 K/uL Mean Platelet Volume 10.0 fL Sodium Level 145 mmol/L Potassium Level 3.8 mmol/L Chloride Level 113 mmol/L Carbon Dioxide Level 24 mmol/L Anion Gap 8.0 mmol/L Blood Urea Nitrogen 16 mg/dl Creatinine 1.50 mg/dl Est Creatinine Clear Calc Drug Dose 32.3 ml/min Estimated GFR () 41.9 Estimated GFR (Non- 36.2 BUN/Creatinine Ratio 10.9 Random Glucose 105 mg/dl Calcium Level 8.0 mg/dl Assessment & Plan LEFT URETERAL CALCULUS Presented with lower abdominal pain, nausea, vomiting. CT demonstrated left distal ureteral calculus measuring 3 x 5 mm. Receiving IV fluids and ceftriaxone. Afebrile. WBC slightly elevated on admission, improved. Urine culture grew > 3 organisms, probable contaminants. Persistent abdominal & flank pain. Further management per Urology. RIGHT OVARIAN MASS CT demonstrated right ovarian mass measuring 8.6 cm in greatest diameter. 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 Outpatient follow-up with Gynecology recommended. VTE PROPHYLAXIS SCD's. Ambulate. DISPOSITION Expected discharge to home. Family Medicine follow-up with Christina Garcia PA-C. . Consultants: Urology . Procedures: CT abdomen + pelvis IV meds IV fluids . Current Inpatient Medications: Current Inpatient Medications Medications (Trade) Dose Ordered Sig/Sascha Route Start Time Stop Time Status Last Admin Dose Admin Acetaminophen (Tylenol Tab) 650 mg Q4H PRN PO 02/24/17 23:45 03/26/17 23:44 02/25/17 21:35 650 MG Al Hydrox/Mg Hydrox/Simethicone (Maalox Max Susp) 15 ml Q4H PRN PO 02/24/17 23:45 03/26/17 23:44 Magnesium Hydroxide (Milk Of Magnesia Susp) 30 ml Q6H PRN PO 02/24/17 23:45 03/26/17 23:44 Polyethylene (Miralax Powder Packet) 17 gm DAILY PRN PO 02/24/17 23:45 03/26/17 23:44 Ondansetron HCl (Zofran Inj) 4 mg Q6H PRN IV 02/24/17 23:45 03/26/17 23:44 Sodium Chloride 1,000 ml @ 125 mls/hr Q8H IV 02/25/17 01:30 03/27/17 01:29 02/26/17 08:23 125 MLS/HR Morphine Sulfate (MoRPHine SULFATE INJ) 2 mg Q4 PRN IV 02/24/17 23:45 03/10/17 23:44 02/26/17 08:24 2 MG Levothyroxine Sodium (Synthroid Tab) 125 mcg DAILYBB PO 02/25/17 06:00 03/27/17 06:59 02/26/17 05:34 125 MCG Simvastatin (Zocor Tab) 40 mg QPM PO 02/25/17 21:00 03/27/17 20:59 02/25/17 21:08 40 MG Ceftriaxone Sodium 1 gm/ Dextrose 50 ml @ 100 mls/hr Q24H IV 02/25/17 03:00 03/07/17 02:59 02/26/17 02:28 100 MLS/HR Oxycodone/ Acetaminophen (Percocet 5-325mg Tab) 2 tab Q4H PRN PO 02/26/17 07:30 03/12/17 07:29 02/26/17 10:31 2 TAB Oxycodone/ Acetaminophen (Percocet 5-325mg Tab) 1 tab Q4H PRN PO 02/26/17 07:30 03/12/17 07:29
--- NOTE | 2017-02-26 20:50 | Discharge Summary ---
Discharge Summary Date of Service Feb 26, 2017. Discharge Summary Admission Date: Feb 24, 2017 at 23:37 Discharge Date: Feb 26, 2017 Discharge Disposition: Home Principal Diagnosis: left ureteral calculus with hydronephrosis . 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 Procedures: CT abdomen + pelvis IV meds IV fluids left ureteroscopy laser lithotripsy basket stone extraction performed by Dr. Dye 02/26/17 . Consultations: Urology . Pending Studies/Follow-Up: ureteral calculus analysis pending Please make outpatient referral to Gynecology re: right ovarian cyst. . Medication Reconciliation New Medications: Phenazopyridine HCl (Phenazopyridine HCl) 200 Mg Tab 200 MG PO TID PRN for Bladder pain, #9 TAB Tamsulosin HCl (Tamsulosin HCl) 0.4 Mg Cap 0.4 MG PO HS, #7 CAP Continued Medications: Levothyroxine Sodium (Synthroid) 125 Mcg Tab 125 MCG PO QAM Simvastatin (Zocor) 40 Mg Tab 40 MG PO QPM, 0 Refills Admission Information HPI (per Admitting provider): This is a 66 year old female with a PMH of hypothyroidism, HLD presents with worsening suprapubic tenderness, nausea/vomiting, symptomatic fevers/chills. Symptoms began acutely and pain was severe so she presented to the ER. Upon presentation, imagining revealed a left sided kidney stone. She received pain medications and antiemetics and she felt somewhat better. During my exam, she was tired, but pain subsided and she was feeling more comfortable. Has not had a kidney stone in the past. Denies dysuria, urinary frequency, or hematuria. . Physical Exam (per Admitting): General Appearance: no apparent distress, + pertinent finding (+tired/weak) Head: normocephalic, atraumatic Eyes: normal inspection ENT: hearing grossly normal Respiratory/Chest: lungs clear, normal breath sounds, no respiratory distress, no accessory muscle use Cardiovascular: regular rate, rhythm, no edema, no murmur Abdomen/GI: normal bowel sounds, soft, + tenderness (diffusely, worse suprapubicly) Back: + left CVA tenderness Extremities/Musculoskelatal: no calf tenderness, normal capillary refill, no pedal edema Neurologic/Psych: no motor/sensory deficits, alert, normal mood/affect Skin: normal color Lymphatic: no adenopathy Hospital Course LEFT URETERAL CALCULUS Presented with lower abdominal pain, nausea, vomiting. CT demonstrated left distal ureteral calculus measuring 3 x 5 mm. Receiving IV fluids and ceftriaxone. Afebrile. WBC slightly elevated on admission, improved. Urine culture grew > 3 organisms, probable contaminants. Persistent abdominal & flank pain after 2 days of IV fluids, tamsulosin, analgesics. Further management per Urology. Left ureteroscopy laser lithotripsy basket stone extraction performed by Dr. Dye. RIGHT OVARIAN MASS CT demonstrated right ovarian mass measuring 8.6 cm in greatest diameter. 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 Outpatient follow-up with Gynecology recommended. VTE PROPHYLAXIS SCD's. Ambulate. DISPOSITION Expected discharge to home. Family Medicine follow-up with Christina Garcia PA-C. . Discharge Instructions Date of Service Feb 26, 2017. Admission Reason for Admission: abdominal pain . Discharge Discharge Diagnosis / Problem: kidney stone, cyst in right ovary Discharge Goals Goal(s): Decrease discomfort, Improve disease control Activity Recommendations Activity Limitations: resume your previous activity . Instructions / Follow-Up Instructions / Follow-Up APPOINTMENTS: UROLOGY Dr. Dye. Driss [facility] will contact you with appointment. FAMILY MEDICINE Christina Garcia PA-C. INSTRUCTIONS: You had a kidney stone blocking your left ureter. It was removed by Dr. Dye. Drink plenty of fluids. New medications: phenazopyridine (Pyridium) 200 mg 3 times a day as needed for bladder discomfort tamsulosin (Flomax) 0.4 mg at bedtime to relax muscles in ureter; only need to take it for 7 days (prescriptions sent to your pharmacy) CT scan of pelvic area showed a cyst in the right ovary. 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 Gynecology consultation recommended- will ask Christina to make referral for you. Seek medical attention if you have: * temperature above 101 * abdominal pain, nausea, vomiting * diarrhea, dark stools or bloody stools * burning when you urinate, blood in urine * any unanswered questions or concerns Call 911 if symptoms are severe. Call if you have any questions or problems. My cell # is [phone]. You can also reach a [facility] hospitalist on duty at [facility] 24 hours a day by calling [phone]. Please take good care of yourself. Sergio Damon . Current Hospital Diet Patient's current hospital diet: Regular Diet Discharge Diet Recommended Diet: AHA Diet (Heart Healthy) Procedures Procedures Performed: Cystoscopy, Left Ureteroscopy, Laser Lithotripsy, Basket Stone Extraction Pending Studies Studies pending at discharge: yes List of pending studies: kidney stone analysis Medical Emergencies . Who to Call and When: Medical Emergencies: If at any time you feel your situation is an emergency, please call 911 immediately. . Non-Emergent Contact Non-Emergency issues call your: Primary Care Provider, Hospital Doctor . . "Provider Documentation" section prepared by Sergio Damon. . VTE Core Measure Inpt VTE Proph given/why not?: SCD's Additional Copies To Christina Garcia PA-C; Nathaly Dye MD
[2017-02-26] MEDS: SIMVASTATIN 40 MG TAB PO SCH (21:12)
[2017-02-27] MEDS ORDERED: TAMSULOSIN HCL 0.4 MG CAP PO SCH (09:00)
--- NOTE | 2017-03-26 10:30 | Medical Consult ---
Consultation Note Date of Service february 26 2017. DAYCARE WORKER Consult The above patient was not scheduled for out patient JACK SETTER consult after disch pt was therefore not seen by JACK SETTER during this admission thank you
== END 2017-02-26 21:38 | disposition home or self-care (01) | DRG 669 ==
LOC: C.EDB 21:00 → C.MSN 23:37 → ENRESERV 23:56
PROVIDERS: ADMIT Family Medicine; ATTEND Hospitalist
PROC: 0TC78ZZ Extirpation of Matter from Left Ureter, Via Natural or Artificial Opening Endoscopic (ICD-10-PCS; principal; 2017-02-26 19:00)
DX: N13.2 Hydronephrosis with renal and ureteral calculous obstruction (principal); E03.9 Hypothyroidism, unspecified; E78.5 Hyperlipidemia, unspecified; E78.00 Pure hypercholesterolemia, unspecified; D27.0 Benign neoplasm of right ovary; R35.0 Frequency of micturition